=== PATIENT | female | born 1960 | race Caucasian/White ===

== ENCOUNTER 2017-12-23 09:41 | Observation (INO) | payer BC, OTHER ==
[2017-12-23] MEDS ORDERED: Aspirin 325 MG TAB ONE (10:08)
[2017-12-23 10:33] LABS: #Basophils 0.1 thou/uL (0.0-0.2); #Eosinphils 0.4 thou/uL (0.0-0.7); #Lymphocytes 3.3 thou/uL (1.20-3.40); #Monocytes 0.5 thou/uL (0.11-0.59); #Neutrophils 6.3 thou/uL (1.40-6.50); %Basophils 0.5 % (0.0-1.0); %Eosinophils 3.9 % (0.0-10.0); %Lymphocytes 31.3 % (21.0-51.0); %Neutrophils 59.3 % (42.0-75.0); Hemoglobin 13.7 g/dL (12.0-16.0); Mean Corpuscular HGB CONC 34.2 g/dL (32.0-36.0); Mean Corpuscular Volume 93.5 fl (81.0-99.0); Platelet Count 313 thou/uL (130-400); RBC Distribution Width 11.3 % (11.5-14.5); White Blood Cell (WBC) Count 10.6 thou/uL (4.8-10.8)
[2017-12-23 10:57] LABS: ALT (SGPT) 43 U/L (8-55); AST (SGOT) 24 U/L (5-34); Alkaline Phosphatase 154 U/L (40-150); Anion Gap 12 mmol/L (10-20); BUN (Urea Nitrogen) 10 mg/dL (9.8-20.1); Bilirubin, Total 0.4 mg/dL (0.2-1.2); CK (CPK) 41 U/L (29-168); Calc. Creatinine Clearance 0 mL/min (70-130); Calcium 9.2 mg/dL (7.8-10.44); Carbon Dioxide 22 mmol/L (22-29); Chloride 110 mmol/L (98-107); Estimated GFR-MDRD 85; Globulin 2.7 g/dL (2.4-3.5); Glucose 97 mg/dL (70-105); Lipase 51 U/L (8-78); Protein, Total 6.7 g/dL (6.0-8.3); Sodium 140 mmol/L (136-145)
[2017-12-23 11:01] LABS: CKMB 0.7 ng/mL (0-6.6); Troponin I Less than 0.010 ng/mL (< 0.028)
[2017-12-23] MEDS ORDERED: Nitroglycerin 2% Ointment 1 INCH/1 GM Packet ONE (12:14)
--- NOTE | 2017-12-23 12:39 | RAD ---
PORTABLE AP CHEST XRAY: DATE: 12/23/17. HISTORY: Chest tightness with chest pain radiating to the mid back. Symptoms have been present for several we eks. COMPARISON: None available. FINDINGS: Cardiac silhouette and pulmonary vasculature are within normal limits. Lungs are clear. Osseous str uctures are intact. IMPRESSION: No acute cardiopulmonary process. POS: [facility]
[2017-12-23] MEDS ORDERED: ISOVUE-370 76%-LOCM 1 ML ONE (13:36)
[2017-12-23 13:59] LABS: Troponin I Less than 0.010 ng/mL (< 0.028)
[2017-12-23 14:29] VITALS: BMI 30.4
[2017-12-23] MEDS ORDERED: Nitroglycerin 0.4 MG TAB (25 Tab Bottle) PO PRN (16:09)
[2017-12-23] MEDS ORDERED: Ondansetron HCl/PF 4 MG/2 ML Vial IVP PRN (16:09)
[2017-12-23] MEDS ORDERED: Guaifenesin DM 100-10/5 ML UDCUP PO PRN (16:09)
[2017-12-23] MEDS ORDERED: Acetaminophen 325 MG TAB PO PRN (16:09)
[2017-12-23 16:51] LABS: Troponin I Less than 0.010 ng/mL (< 0.028)
[2017-12-23] MEDS: traMADol HCl 50 MG TAB PO PRN ×2 (16:57→23:08)
--- NOTE | 2017-12-23 18:17 | CT ---
CT ANGIOGRAM THORAX WITH IV CONTRAST AND 3D RECONSTRUCTIONS: Date: 12/23/17 HISTORY: Shortness of breath and chest pain since last Sunday. FINDINGS: No filling defects are seen in the pulmonary arteries to suggest pulmonary embolus. Thoracic aorta is normal in caliber without evidence of an aortic dissection. Incidental note is made of an aberrant right subclavian artery. Vascular calcifications are seen in the coronary arteries. Mediastinal structures have a normal appearance and there is no lymphadenopathy. There is dependent atelectasis bilaterally, but the lungs are otherwise clear. No pleural effusion is present. Upper abdomen demonstrates a normal CT appearance. IMPRESSION: No CT evidence of pulmonary embolus. POS: [facility]
[2017-12-23] MEDS: Metoprolol Tartrate 25 MG TAB PO SCH (20:03)
[2017-12-23] MEDS: Famotidine 20 MG TAB PO SCH (20:18)
--- NOTE | 2017-12-23 21:19 | HP ---
REASON FOR ADMISSION: Chest pain. HISTORY OF PRESENT ILLNESS: The patient gives history of having pressure-like sensation on Sunday a ll across her chest, radiating to the back and mainly to her shoulder blades both sides. She also ch ecked her pulse, it was very high at home. On , she went to see her primary care physician a nd was found to have had high blood pressure. She was given a prescription for Cozaar. Her chest pr essure-like feeling was not going away and was getting worse. This was always present. She also sta rted to develop shortness of breath and finally made it to the emergency room. No complaints of ferosalie r. Has dry cough. Her chest pressure is worse on coughing spells. The patient does mention that antonella juarez has had cardiac catheterization done 5 years back at [facility], which was normal as far as antonella juarez knows. The patient is also trying to quit smoking and has not smoked from last 3 days and has been started on Chantix, which she took 1 pill from this morning. PAST MEDICAL AND SURGICAL HISTORY: History of osteoarthritis, dyslipidemia, hypertension, appendecto my, hysterectomy, tonsillectomy, bunionectomy. CURRENT MEDICATIONS: Losartan 25 mg daily, Chantix 1 mg daily from this morning. ALLERGIES: BACTRIM, sensitive to NORCO. PERSONAL HISTORY: Smokes 3-8 cigarettes per day. No history of substance abuse or alcohol abuse. Frederick fong with her . 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 FAMILY HISTORY: Mother is living and has history of CHF. She is a breast cancer survivor. Father h as a history of dyslipidemia. REVIEW OF SYSTEMS: The following complete review of systems was negative, unless otherwise mentioned in the HPI or below: Constitutional: Weight loss or gain, ability to conduct usual activities. Skin: Rash, itching. Eyes: Double vision, pain. ENT/Mouth: Nose bleeding, neck stiffness, pain, tenderness. Cardiovascular: Palpitations, dyspnea on exertion, orthopnea. Respiratory: Shortness of breath, wheezing, cough, hemoptysis, fever or night sweats. Gastrointestinal: Poor appetite, abdominal pain, heartburn, nausea, vomiting, constipation, or diarrhea. Genitourinary: Urgency, frequency, dysuria, nocturia. Musculoskeletal: Pain, swelling. Neurologic/Psychiatric: Anxiety, depression. Allergy/Immunologic: Skin rash, bleeding tendency. PHYSICAL EXAMINATION: GENERAL: The patient is a 57-year-old female who is currently not in any acute distress. VITAL SIGNS: Blood pressure 132/82, pulse 86 per minute, respiratory rate 18 per minute, temperature 98.5 degrees Fahrenheit, saturating 96% on room air. NECK: Supple, no elevated JVD. HEENT: Eyes: Extraocular muscles intact. Pupils reacting to light. Oral cavity: Mucous membranes are moist. No exudates or congestion. CARDIOVASCULAR: S1, S2 heard. Regular rhythm. RESPIRATORY: Air entry 1+ bilateral. Scattered rhonchi plus bilateral. ABDOMEN: Soft, bowel sounds heard. No tenderness, rigidity or guarding. EXTREMITIES: No peripheral edema or calf tenderness. VASCULAR SYSTEM: Peripheral pulses 1+ bilateral, no ischemic ulcerations or gangrene. CENTRAL NERVOUS SYSTEM: No gross focal deficits seen. The patient is alert, awake, oriented well. PSYCHIATRIC: The patient's mood is euthymic. No hallucinations or delusions. LABORATORY AND X-RAY FINDINGS: White count of 10, H&H 13 and 40, platelet count 313, MCV is 93 with 59% neutrophils. D-dimer 0.3, serum bicarbonate 22. Electrolytes stable. BUN 10, creatinine 0.7. Liver enzymes within normal limits. CK-MB 0.7, troponin I x2 is negative. BNP is 53, albumin is 4.0 , lipase is 51. Chest x-ray done shows no acute cardiopulmonary abnormalities. EKG done shows alie l sinus rhythm at 85 beats per minute, no gross ST-T wave changes. CLINICAL IMPRESSION AND PLAN: The patient will be under observation on telemetry for atypical chest pain, which appears to be likely pleuritic. She is also trying to quit smoking. The patient has mul tiple risk factors for acute coronary syndrome. She has had a normal angiogram done 5 years ago. We will schedule her for a stress test in the morning. We will also obtain a CT angio chest to rule ou t PE. We will continue her on aspirin, Pepcid, small dose of Lopressor, DuoNebs q.4 hourly p.r.n., c ontinue her Chantix and Ultram as before. CODE STATUS: FULL. This was discussed with the patient.
[2017-12-24 04:40] LABS: #Basophils 0.1 thou/uL (0.0-0.2); #Eosinphils 0.6 thou/uL (0.0-0.7); #Lymphocytes 4.5 thou/uL (1.20-3.40); #Monocytes 0.6 thou/uL (0.11-0.59); #Neutrophils 4.3 thou/uL (1.40-6.50); %Eosinophils 5.5 % (0.0-10.0); %Monocytes 6.1 % (0.0-10.0); %Neutrophils 42.4 % (42.0-75.0); Mean Corpuscular HGB CONC 34.4 g/dL (32.0-36.0); Mean Corpuscular Hemoglobin 32.3 pg (27.0-31.0); Mean Corpuscular Volume 93.7 fl (81.0-99.0); Mean Platelet Volume 8.8 fL (7.4-10.4); Platelet Count 282 thou/uL (130-400); RBC Distribution Width 11.6 % (11.5-14.5); Red Blood Cell (RBC) Count 4.03 mill/uL (4.20-5.40); White Blood Cell (WBC) Count 10.1 thou/uL (4.8-10.8)
[2017-12-24 05:02] LABS: Anion Gap 9 mmol/L (10-20); BUN (Urea Nitrogen) 10 mg/dL (9.8-20.1); Calc. Creatinine Clearance 117 mL/min (70-130); Calcium 8.8 mg/dL (7.8-10.44); Carbon Dioxide 24 mmol/L (22-29); Cardiac Risk 4.3 (Less than 4.5); Chloride 109 mmol/L (98-107); Cholesterol 222 mg/dl (< 200 Desired); Estimated GFR-MDRD 88; Glucose 82 mg/dL (70-105); HDL Cholesterol 52 mg/dL (>60 Neg Risk); LDL Cholesterol, Calculated 151 mg/dL; Potassium 4.1 mmol/L (3.5-5.1); Sodium 138 mmol/L (136-145); Triglycerides 95 mg/dL (Less than 150)
[2017-12-24] MEDS ORDERED: Varenicline Tartrate 0.5 MG TAB PO SCH (09:00)
[2017-12-24] MEDS ORDERED: Enoxaparin Sodium 40 MG/0.4 ML SYRINGE SC SCH (09:00)
[2017-12-24] MEDS ORDERED: Aspirin 325 MG TAB PO SCH (09:00)
[2017-12-24] MEDS: Metoprolol Tartrate 25 MG TAB PO SCH (09:45)
[2017-12-24] MEDS: Famotidine 20 MG TAB PO SCH (09:45)
[2017-12-24] MEDS ORDERED: Regadenoson 0.4 MG/5 ML SYRINGE ONE (11:06)
--- NOTE | 2017-12-24 12:27 | NM ---
MYOCARDIAL PERFUSION AND QUANTITATIVE GATED SPECT IMAGES: HISTORY: Chest pain. Dose is 33 mCi of Technetium 99m Cardiolite for the stress portion of the exam and 11 mCi for the res ting portion of the exam. The patient was stressed using 0.4 mg of LexiScan given IV. FINDINGS: Multiplanar and quantitative gated SPECT images are obtained. Images demonstrate evidence of significant areas of perfusable defects. No evidence of myocardial is chemia or scar seen. Ejection fraction measures 71%. IMPRESSION: Normal myocardial perfusion and quantitative gated SPECT study. POS: [facility]
[2017-12-24] MEDS: traMADol HCl 50 MG TAB PO PRN (15:02)
[2017-12-24 15:20] VITALS: BP 100/60; TEMP 97.6
--- NOTE | 2017-12-24 19:04 | DIS ---
DATE OF ADMISSION: 12/23/2017 DATE OF DISCHARGE: 12/24/2017 ADMITTING DIAGNOSES: Chest pain as well as past medical history of osteoarthritis, dyslipidemia, hyp ertension, appendectomy, hysterectomy, tonsillectomy and smoking. DISCHARGE DIAGNOSES: Chest pain, noncardiac in nature, resolved, stable; history of osteoarthritis; dyslipidemia; hypertension; appendectomy; hysterectomy; and tonsillectomy. HOSPITAL COURSE: This is a 57-year-old female who was admitted to the hospital complaining of subste rnal chest pain, pressure-like in nature, lasting for hours and nonradiating to her shoulder blades a nd was admitted to Internal Medicine team and placed a telemetry floor. Patient had tele observation done with 24 hours showing no acute cardiac abnormalities or conduction abnormalities. The patient had troponins which were negative x3. Had a lipid panel done which showed borderline elevated total cholesterol of 222. CBC was within normal limit. D-dimer was normal limits. The patient also had a CTA of the chest and thorax done to rule out any possible location of PE which was negative. Kevin t also had a stress test done which was negative. At this point in time, patient's condition is stab le. The patient denies any complaints. No nausea, vomiting, diarrhea, constipation, chest pain, fev ers, or shortness of breath. States that she is back to baseline. The patient was advised to follow up with her PCP in a week for further management and care. DISPOSITION: Home. MEDICATIONS: See OCT. FOLLOWUP: With PCP in 1 week. DIET: Low fat, low calorie, high fiber diet. ACTIVITY: As tolerated with assistance as appropriate. CONDITION: Stable. PROGNOSIS: Good. Case and plan discussed with the patient at length. She understands and agrees with this plan.
[2017-12-24] MEDS ORDERED: Simvastatin 20 MG TAB PO SCH (21:00)
[2017-12-24] MEDS ORDERED: Atorvastatin Calcium 10 MG TAB PO SCH (21:00)
--- NOTE | 2017-12-28 13:10 | STRESS ---
Acquisition Time: 2017-12-24 09:21:39 Total Exercise Time: 00:01:00 Test Indications: CHEST PAIN Medications: Protocol: LEXISCAN Max HR: 136 BPM 82% of Pred: 165 BPM Max BP: 136/084 mmHG Max Work Load: 1.0 METS RESTING ECG: NORMAL SINUS RHYTHM AT 81 BPM WITH EARLY R-WAVE PROGRESSION SYMPTOMS: DYSPNEA ON EXERTION; NAUSEA, HEADACHE NORMAL BP RESPONSE ECTOPY: RARE PVC'S ECG STRESS: WIDESPREAD T-WAVE FLATTENING AND T-WAVE DEPRESSION INTERPRETATION: INDETERMINATE ECG; AWAIT NUCLEAR IMAGES FOR DEFINTIVE DIAGNOSIS Confirmed by CONNIE RICO ([id number]) on 12/28/2017 1:09:38 PM Referred By: MD Ariana BARNES Confirmed By:CONNIE RICO
--- NOTE | 2017-12-29 15:08 | EKG ---
Test Reason : CP Blood Pressure : / mmHG Vent. Rate : 085 BPM Atrial Rate : 085 BPM P-R Int : 128 ms QRS Dur : 078 ms QT Int : 346 ms P-R-T Axes : 055 051 045 degrees QTc Int : 411 ms Normal sinus rhythm Normal ECG Confirmed by MEETA HUGHES, RICKY ([id number]), electronic news gathering editor FAUSTO HOUSTON ([id number]) on 12/29/2017 3:08:11 PM Referred By: Confirmed By:RICKY TIM MD
== END 2017-12-24 16:00 | disposition home or self-care (01) ==
LOC: ERS 09:41 → 2SW 14:03
PROVIDERS: ADMIT Internal Medicine; ATTEND Internal Medicine
DX: R07.89 Other chest pain (principal); M19.90 Unspecified osteoarthritis, unspecified site; E78.5 Hyperlipidemia, unspecified; I10 Essential (primary) hypertension; F17.210 Nicotine dependence, cigarettes, uncomplicated; Z88.2 Allergy status to sulfonamides; Z88.5 Allergy status to narcotic agent; Z88.0 Allergy status to penicillin; Z79.899 Other long term (current) drug therapy
CPT/HCPCS: 36415; 71045; 71275; 78452; 80048; 80053; 80061; 82553; 83690; 83880; 84484; 85025; 85379; 93005; 93017; 94640; 96374; 99406; A9500; G0378; J2405; J2785; J7620